=== PATIENT | male | born 1965 | race African-American/Black ===

== ENCOUNTER 2018-02-22 15:04 | Observation (INO) | payer SELFPAY ==
[~2018-02-22 15:04] MED LIST: ISOVUE-370 76%-LOCM 1 ML ONE
[2018-02-22 15:20] LABS: Hemoglobin 13.1 g/dL (14.0-18.0); Mean Corpuscular Hemoglobin 38.6 pg (27.0-31.0); Mean Platelet Volume 5.9 fL (7.4-10.4); Platelet Count 223 thou/uL (130-400); White Blood Cell (WBC) Count 10.3 thou/uL (4.8-10.8)
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
[2018-02-22 15:39] LABS: Anion Gap 10 mmol/L (10-20); BUN (Urea Nitrogen) 11 mg/dL (8.4-25.7); Carbon Dioxide 22 mmol/L (22-29); Chloride 112 mmol/L (98-107); Potassium 3.7 mmol/L (3.5-5.1); Sodium 140 mmol/L (136-145)
[2018-02-22 15:40] LABS: ALT (SGPT) 20 U/L (8-55); AST (SGOT) 39 U/L (5-34); Albumin 3.3 g/dL (3.5-5.0); Alcohol 191 mg/dL (Less than 10); Alkaline Phosphatase 47 U/L (40-150); Bilirubin, Total 0.3 mg/dL (0.2-1.2); Calc. Creatinine Clearance 0 mL/min (70-130); Calcium 7.8 mg/dL (7.8-10.44); Estimated GFR-MDRD Greater than 90; Globulin 2.9 g/dL (2.4-3.5); Glucose 86 mg/dL (70-105); Protein, Total 6.2 g/dL (6.0-8.3)
[2018-02-22 15:41] LABS: #Basophils 0.2 thou/uL (0.0-0.2); #Eosinphils 0.1 thou/uL (0.0-0.7); #Lymphocytes 3.6 thou/uL (1.20-3.40); #Monocytes 0.7 thou/uL (0.11-0.59); #Neutrophils 5.8 thou/uL (1.40-6.50); %Basophils 1.6 % (0.0-1.0); %Lymphocytes 34.6 % (21.0-51.0); %Neutrophils 55.8 % (42.0-75.0); PLT Morphology Comment Appears Adequate
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
[2018-02-22] MEDS ORDERED: traMADol HCl 50 MG TAB PO PRN (16:52)
[2018-02-22] MEDS ORDERED: Acetaminophen 500 MG TAB PO PRN (16:52)
[2018-02-22] MEDS ORDERED: Ibuprofen 800 MG TAB PO PRN (16:52)
[2018-02-22] MEDS ORDERED: Dextrose 50% Abboject 50 ML SYRINGE SLOW IVP PRN (16:53)
[2018-02-22] MEDS ORDERED: Dextrose 5% in Water 1,000 ML IV PRN (16:53)
[2018-02-22] MEDS ORDERED: Ondansetron ODT 4 MG TAB PO PRN (16:53)
[2018-02-22] MEDS ORDERED: Ondansetron HCl/PF 4 MG/2 ML Vial IVP PRN (16:53)
[2018-02-22] MEDS ORDERED: hydrALAZINE 20 MG/ML VIAL SLOW IVP PRN (16:53)
[2018-02-22] MEDS: Sodium Chloride 0.9% 1,000 ML IV SCH (18:29)
[2018-02-22] MEDS: traMADol HCl 50 MG TAB PO PRN (18:34)
[2018-02-22 18:44] VITALS: BMI 22.1
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
[2018-02-23] MEDS: Sodium Chloride 0.9% 1,000 ML IV SCH (01:35)
[2018-02-23] MEDS: traMADol HCl 50 MG TAB PO PRN (04:24)
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
[2018-02-23 10:19] VITALS: BP 124/79
[2018-02-23 11:18] VITALS: TEMP 97.8
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
== END 2018-02-23 13:29 | disposition home or self-care (01) ==
LOC: ERS 15:04 → SURG A 16:10
PROVIDERS: ADMIT Neurological Surgery; ATTEND Neurological Surgery
DX: S06.0X9A Concussion with loss of consciousness of unspecified duration, initial encounter (principal); F10.129 Alcohol abuse with intoxication, unspecified; G89.11 Acute pain due to trauma; F17.210 Nicotine dependence, cigarettes, uncomplicated; R10.12 Left upper quadrant pain; V29.40XA Motorcycle driver injured in collision with unspecified motor vehicles in traffic accident, initial encounter; Y92.411 Interstate highway as the place of occurrence of the external cause; Y90.7 Blood alcohol level of 200-239 mg/100 ml
CPT/HCPCS: 70450; 71045; 71260; 72125; 72170; 74177; 80053; 80307; 85025; 94760; 96360; 96361; G0378; G0390